=== PATIENT | female | born 1970 | race Caucasian/White ===

== ENCOUNTER 2017-03-24 00:58 | Emergency (ER) | payer MEDICAID ==
[2017-03-24] MEDS ORDERED: Ondansetron 4 MG/2 ML SDV IV ONE (03:20)
[2017-03-24] MEDS ORDERED: Ketorolac 30 MG/ML SDV IVPUSH ONE (03:20)
[2017-03-24] MEDS ORDERED: Sodium Chloride 0.9% 1,000 ML IV ONE (03:20)
--- NOTE | 2017-03-24 04:29 | EDM.PDOC ---
ED HPI GENERAL MEDICAL PROBLEM - General Chief Complaint: Skin Complaint Stated Complaint: VOMITING, SICK Time Seen by Provider: 03/24/17 02:50 Source of Information: Reports: Patient History Limitations: Reports: No Limitations - History of Present Illness INITIAL COMMENTS - FREE TEXT/NARRATIVE: c/o generalized discomfort form sunburn today, Experiencing fever and chills, emesis x 1 nauseated. Was on boat fishing today. Sunscreen on not until 2 pm. Onset: Today Quality: Reports: Burning Severity: Moderate Context: Reports: Other (sun exposure) Generalized Pain Score (Numeric/FACES): 9 - Related Data Allergies Allergy/AdvReac Type Severity Reaction Status Date / Time lamotrigine [From Lamictal] Allergy Rash Verified 03/24/17 02:36 Home Meds: Home Meds Latuda 20 mg PO DAILY 03/24/17 [History] Prosian 1 mg PO DAILY 03/24/17 [History] Past Medical History Neurological History: Reports: Concussion, Seizure, Other (See Below) Other Neuro History: nightmares Psychiatric History: Reports: Depression - Infectious Disease History Infectious Disease History: Reports: Chicken Pox - Past Surgical History Other GI Surgeries/Procedures: tummy tuck Female Surgical History: Reports: Breast Reduction, Hysterectomy Social & Family History - Family History Family Medical History: Noncontributory - Tobacco Use Smoking Status *Q: Current Every Day Smoker Years of Tobacco use: 36 Packs/Tins Daily: 1 - Caffeine Use Caffeine Use: Reports: Coffee - Recreational Drug Use Recreational Drug Use: No ED ROS GENERAL - Review of Systems Review Of Systems: ROS reveals no pertinent complaints other than HPI. Constitutional: Reports: Fever, Chills HEENT: Reports: No Symptoms Respiratory: Reports: No Symptoms GI/Abdominal: Reports: Nausea, Vomiting Skin: Reports: Burn(s) (sunburn to exposed areas) Neurological: Reports: No Symptoms ED EXAM, SKIN/RASH Exam: See Below Exam Limited By: No Limitations General Appearance: Alert, Moderate Distress Eye Exam: Bilateral Eye: EOMI Ears: Normal External Exam Nose: Normal Inspection Throat/Mouth: Normal Inspection Head: Atraumatic, Normocephalic Respiratory/Chest: No Respiratory Distress, Lungs Clear, Normal Breath Sounds Cardiovascular: Normal Peripheral Pulses, Regular Rate, Rhythm GI/Abdominal: Normal Bowel Sounds, Soft, Non-Tender Back Exam: Normal Inspection, Full Range of Motion Extremities: Normal Inspection, Normal Range of Motion, Non-Tender Neurological: Alert, Oriented, Normal Cognition Psychiatric: Normal Affect Skin: Warm, Dry, Intact, Normal Color Location, Skin: Generalized (exposed areas of legs, arms, upper chest and back.) Characteristics: No: Vesicular Associated features: Warmth, Tenderness, Inflammation. No: Weeping Course - Vital Signs Last Recorded V/S: Last Vital Signs Temp 99.4 F 03/24/17 05:19 Pulse 94 03/24/17 05:19 Resp 16 03/24/17 05:19 BP 106/45 L 03/24/17 05:19 Pulse Ox 100 03/24/17 05:19 - Orders/Labs/Meds Meds: Medications Discontinued Medications Generic Name Dose Route Start Last Admin Trade Name Ally PRN Reason Stop Dose Admin Sodium Chloride 1,000 mls @ 999 mls/hr 03/24/17 03:20 03/24/17 04:29 Normal Saline IV 03/24/17 04:20 999 mls/hr .BOLUS ONE Administration Ketorolac Tromethamine 30 mg 03/24/17 03:20 03/24/17 04:22 Toradol IVPUSH 03/24/17 03:21 30 mg ONETIME ONE Administration Ondansetron HCl 4 mg 03/24/17 03:20 03/24/17 04:22 Zofran IV 03/24/17 03:21 4 mg ONETIME ONE Administration - Re-Assessments/Exams Free Text/Narrative Re-Assessment/Exam: 03/24/17 06:07 nausea resolved and pain improved. Departure - Departure Time of Disposition: 06:08 Disposition: Home, Self-Care 01 Condition: Fair Clinical Impression: Sunburn of first degree, Dehydration - Discharge Information Instructions: Dehydration, Adult, [id number] Forms: ED Department Discharge Additional Instructions: increase fluids tylenol or ibuprofen for discomfort avoid sun exposure
[2017-03-24 05:21] VITALS: BP 106/45
== END 2017-03-24 06:06 | disposition home or self-care (01) ==
LOC: DL.ED 00:58
DX: L55.0 Sunburn of first degree (principal); E86.0 Dehydration; F17.210 Nicotine dependence, cigarettes, uncomplicated; Z88.8 Allergy status to other drugs, medicaments and biological substances; Z79.899 Other long term (current) drug therapy
CPT/HCPCS: 96365; 96375; 99283; J1885; J2405; J7030